=== PATIENT | female | born 1975 | race Asian ===

== ENCOUNTER 2021-11-07 09:33 | Outpatient (CLI) | payer BC | END 2021-11-07 09:34 | disposition home or self-care (01) | LOC: CSHMAMMO 09:33 | PROVIDERS: ATTEND Obstetrics & Gynecology | DX: Z12.31 Encounter for screening mammogram for malignant neoplasm of breast (principal) | CPT/HCPCS: 77063; 77067 ==

== ENCOUNTER 2022-11-18 14:17 | Outpatient (CLI) | payer BC | END 2022-11-18 14:18 | disposition home or self-care (01) | LOC: CSHMAMMO 14:17 | PROVIDERS: ATTEND Obstetrics & Gynecology | DX: Z12.31 Encounter for screening mammogram for malignant neoplasm of breast (principal) | CPT/HCPCS: 77063; 77067 ==